=== PATIENT | male | born 1995 | race Caucasian/White ===

== ENCOUNTER 2021-12-19 17:49 | Emergency (ER) | payer MEDICAID, OTHER ==
[~2021-12-19] VITALS: Ht 188 cm; Wt 81.0 kg
[2021-12-19 22:40] VITALS: BP 123/69
== END 2021-12-19 22:55 | disposition home or self-care (01) ==
LOC: ER 17:49
DX: R51.9 Headache, unspecified (principal); R42 Dizziness and giddiness; M54.2 Cervicalgia; M54.50 Low back pain, unspecified; M25.511 Pain in right shoulder
CPT/HCPCS: 36415; 70450; 72125; 72131; 87070; 87880

== ENCOUNTER 2022-05-15 19:58 | Emergency (ER) | payer MEDICAID ==
[~2022-05-15] VITALS: Ht 185.4 cm; Wt 80.0 kg
[2022-05-15 20:38] VITALS: BP 132/72
[2022-05-15] MEDS ORDERED: AMOX-277 PO (22:33)
== END 2022-05-16 06:35 | disposition home or self-care (01) ==
LOC: ER 19:58
DX: R04.0 Epistaxis (principal); J01.10 Acute frontal sinusitis, unspecified; F17.210 Nicotine dependence, cigarettes, uncomplicated
CPT/HCPCS: 71045